=== PATIENT | male | born 1965 | race Hispanic/Latino ===

== ENCOUNTER → 2018-09-11 | Outpatient (CLI) | payer OTHER ==
--- NOTE | 2018-09-12 07:54 | Diagnostic Imaging Report ---
FLUOROSCOPIC SMALL BOWEL SERIES SHIP'S CAPTAIN(S): Jone Newby MD Indication: Positive FIT test. Comparison: None. Radiation Dose: Total dose: 37.5 mGy Total fluoroscopy time: 0.4 minutes Procedure: Small bowel follow through exam was performed using oral barium. Preliminary image was obtained before administration of contrast and serial overhead images were obtained after administration of oral barium. Fluoroscopy was performed and spot images were obtained. 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 No acute bony abnormality. STOMACH: Unremarkable mucosal pattern. SMALL BOWEL: Bulb and sweep are normal. Duodenal-jejunal junction is in the normal expected position. Small bowel loops are normal in caliber and distribution. There is no evidence of fistula, mucosal changes, stricture or dilation. The transit time was brisk with passage of contrast from the stomach into the mid colon within 20 minutes. Spot image of the terminal ileum was unremarkable. COLON: Filling defects within the colon likely reflect stool contents. No evidence of stricture or specific evidence of mass in the partially visualized colon. Suggest correlation with colonoscopy. IMPRESSION: No evidence of mass or mucosal abnormality in the small bowel. Relatively brisk transit of contrast from the stomach into the mid colon within 20 minutes. Filling defects within the colon likely reflect stool contents. No evidence of stricture or specific evidence of mass in the partially visualized colon. Suggest correlation with colonoscopy. Signed by: Dr. Jone Newby MD on 09/12/2018 7:51 AM
== END ==
LOC: DX 10:12
PROVIDERS: ATTEND Internal Medicine Gastroenterology
DX: R19.5 Other fecal abnormalities (principal)
CPT/HCPCS: 74250